=== PATIENT | male | born 1950 | race Caucasian/White ===

== ENCOUNTER → 2018-05-09 | Outpatient (CLI) | payer OTHER | LOC: FIMAGING 10:46 | PROVIDERS: ATTEND Orthopaedic Surgery | DX: Z01.818 Encounter for other preprocedural examination (principal); M17.12 Unilateral primary osteoarthritis, left knee ==

== ENCOUNTER 2018-06-04 09:15 | Observation (INO) | payer OTHER ==
--- NOTE | 2018-06-04 06:41 | PDHPUP ---
History & Physical Update H&P update statement: This history and physical update is based on an assessment of the patient which was completed after admission or registration (within 24 hours), but prior to the surgery/procedure. H&P update: H&P reviewed & patient examined, no change in patient's condition since H&P completed
[~2018-06-04 09:15] MED LIST: ROPIVACAINE 0.2% 80 MG, EPINEPHrine 0.2 MG, KETOROLAC TROMETHAMINE 30 MG in SYRINGE 0 ML IU ONE; TRANEXAMIC ACID 3,000 MG in NS (SYRINGE) 50 ML IRR ONE; TRANEXAMIC ACID 3,000 MG/50 ML BAG IRR ONE
[2018-06-04] MEDS ORDERED: FAMOTIDINE 20 MG TAB PO ONE (09:38)
[2018-06-04] MEDS ORDERED: ceFAZolin 2 GM/DEXTROSE 100 ML IV ONE (09:38)
[2018-06-04] MEDS ORDERED: ACETAMINOPHEN 325 MG TAB PO ONE (09:38)
[2018-06-04] MEDS ORDERED: DEXAMETHASONE 4 MG/ML VIAL IVP ONE (09:38)
[2018-06-04] MEDS ORDERED: LR 1,000 ML IV ONE (09:39)
[2018-06-04] MEDS ORDERED: MIDAZOLAM 2 MG/2 ML VIAL IVP ONE (10:59)
--- NOTE | 2018-06-04 10:59 | PDANEPAE ---
ANE Past Medical History - Cardiovascular History Hx Hypertension: Yes Hx Arrhythmias: No Hx Chest Pain: No Hx Coronary Artery / Peripheral Vascular Disease: No Hx CHF / Valvular Disease: No Hx Palpitations: No - Pulmonary History Hx COPD: No Hx Asthma/Reactive Airway Disease: No Hx Recent Upper Respiratory Infection: No Hx Oxygen in Use at Home: No Hx Sleep Apnea: No Sleep Apnea Screening Result - Last Documented: Negative - Neurologic History Hx Cerebrovascular Accident: No Hx Seizures: Yes Hx Dementia: No Neurologic History Comment: EPILEPSY - KEPPRA. LAST SEIZURE 4 YRS AGO - Endocrine History Hx Diabetes: No - Renal History Hx Renal Disorders: No - Liver History Hx Hepatic Disorders: No - Neurological & Psychiatric Hx Hx Neurological and Psychiatric Disorders: No Neurological / Psychiatric History Comment: L4/L5 DDD R FOOT - Cancer History Hx Cancer: No - Congenital Disorder History Hx Congenital Disorders: No - GI History Hx Gastrointestinal Disorders: Yes Gastrointestinal History Comment: ACID REFLUX - Other Health History Other Health History: NEG - Chronic Pain History Chronic Pain: Yes (L KNEE) - Surgical History Prior Surgeries: EAR TUBE PLACED 7 YRS AGO. ENDOSCPIES X2. COLONOSCOPIES ANE Review of Systems Review of Systems: - Exercise capacity METS (RN): 4 METS ANE Patient History - Allergies Allergies/Adverse Reactions: No Known Allergies Allergy (Verified 05/05/18 10:01) - Home Medications Home Medications: Hydrochlorothiazide [HCTZ (*)] 25 mg PO DAILY@11/14/13 [Last Taken 06/03/18] Lisinopril [Zestril 10 mg (*)] 10 mg PO DAILY@11/14/13 [Last Taken 06/03/18] Aspirin [Aspirin 81mg (*)] 81 mg PO DAILY@05/05/18 [Last Taken 05/27/18] Atorvastatin Calcium [Lipitor 10 mg (*)] 10 mg PO DAILY@05/05/18 [Last Taken 06/03/18] Multivitamins [Multivitamin (*)] 1 each PO DAILY@05/05/18 [Last Taken ] Pantoprazole Sodium [Protonix 40mg (*)] 40 mg PO DAILY 05/05/18 [Last Taken 02/12 08:00] - NPO status NPO Since - Liquids (Date): 06/04/18 NPO Since - Liquids (Time): 08:00 NPO Since - Solids (Date): 06/03/18 NPO Since - Solids (Time): 21:00 - Smoking Hx Smoking Status: Never smoked - Family Anes Hx Family Hx Anesthesia Complications: NEG ANE Labs/Vital Signs - Vital Signs Blood Pressure: 153/86 Heart Rate: 75 Respiratory Rate: 15 O2 Sat (%): 96 Height: 182.88 cm Weight: 86.183 kg ANE Physical Exam - Airway Neck exam: FROM Mallampati Score: Class 2 Mouth exam: normal dental/mouth exam - Pulmonary Pulmonary: no respiratory distress - Cardiovascular Cardiovascular: regular rate and rhythym - ASA Status ASA Status: II
[2018-06-04] MEDS ORDERED: MIDAZOLAM 2 MG/2 ML VIAL ONE (11:01)
[2018-06-04] MEDS ORDERED: PROPOFOL/EMULSION 500 MG/50 ML BOTTLE IV ONE (11:07)
[2018-06-04] MEDS ORDERED: ALBUTEROL 3 ML DEYVIAL IH PRN (11:26)
[2018-06-04] MEDS ORDERED: ONDANSETRON 4 MG/2 ML VIAL IVP PRN ×2 (11:26→12:38)
[2018-06-04] MEDS ORDERED: fentaNYL 100 MCG/2 ML INJ IVP PRN (11:26)
[2018-06-04] MEDS ORDERED: NALOXONE HCL 0.4 MG/ML INJ IVP PRN (11:26)
[2018-06-04] MEDS ORDERED: fentaNYL 100 MCG/2 ML INJ ONE (11:41)
[2018-06-04] MEDS ORDERED: diphenhydrAMINE 25 MG CAP PO PRN (12:38)
[2018-06-04] MEDS ORDERED: BISACODYL 10 MG SUPP PR PRN (12:38)
[2018-06-04] MEDS ORDERED: LACTULOSE 20 GM/30 ML UDCUP PO PRN (12:38)
[2018-06-04] MEDS ORDERED: MAGNESIUM HYDROXIDE 30 ML UDCUP PO PRN (12:38)
[2018-06-04] MEDS ORDERED: POLYETHYLENE GLYCOL 3350 17 GM PKT PO PRN (12:38)
[2018-06-04] MEDS ORDERED: PROMETHAZINE HCL 25 MG/ML INJ IVP PRN (12:38)
[2018-06-04] MEDS ORDERED: oxyCODONE IR 5 MG TAB PO PRN (12:38)
[2018-06-04] MEDS ORDERED: ONDANSETRON DISINTEGRATING 4 MG TAB PO PRN (12:38)
[2018-06-04] MEDS ORDERED: PROMETHAZINE HCL 25 MG SUPPR PR PRN (12:38)
[2018-06-04] MEDS ORDERED: METOCLOPRAMIDE 10 MG/2 ML VIAL IVP PRN (12:38)
[2018-06-04] MEDS ORDERED: CYCLOBENZAPRINE 10 MG TAB PO PRN (12:38)
[2018-06-04] MEDS ORDERED: DIPHENOXYLATE/ATROPINE LOMOTIL 1 TAB PO PRN (12:38)
[2018-06-04] MEDS ORDERED: TEMAZEPAM 15 MG CAP PO PRN (12:38)
--- NOTE | 2018-06-04 12:38 | POSTOPPROG ---
Post Op Note Date of Operation: 06/04/18 Surgeon: Shagufta Schuster Financial Sales Representative: criss schuster PA-C Anesthesiologist: dr. price Anesthesia: Spinal, Other (Specify) (adductor canal block) Pre-op Diagnosis: left knee OA Post-op Diagnosis: same Indication: left knee pain Procedure: L TKA robot assisted, sensor assisted Findings: severe knee OA Inf/Abcess present in the surg proc area at time of surgery?: No EBL: 50-100
[2018-06-04] MEDS ORDERED: LR 1,000 ML IV SCH (13:00)
[2018-06-04] MEDS: levETIRAcetam 500 MG TAB PO SCH (18:21)
[2018-06-04] MEDS: ACETAMINOPHEN 325 MG TAB PO SCH (18:21)
[2018-06-04] MEDS: ceFAZolin 2 GM/DEXTROSE 100 ML IV SCH (18:22)
[2018-06-04] MEDS: ASPIRIN 81 MG CHEWABLE TAB PO SCH (20:24)
[2018-06-04] MEDS: FAMOTIDINE 20 MG TAB PO SCH (20:24)
[2018-06-04] MEDS: SENNOSIDES/DOCUSATE SODIUM TAB PO SCH (20:25)
[2018-06-05] MEDS: ACETAMINOPHEN 325 MG TAB PO SCH ×2 (00:04→05:53)
[2018-06-05] MEDS: ceFAZolin 2 GM/DEXTROSE 100 ML IV SCH (03:28)
[2018-06-05] MEDS ORDERED: PANTOPRAZOLE SODIUM 40 MG TAB PO SCH (07:00)
[2018-06-05 07:27] VITALS: BP 103/62
[2018-06-05] MEDS: levETIRAcetam 500 MG TAB PO SCH (07:29)
--- NOTE | 2018-06-05 08:34 | SOAPPROG ---
SOAP Progress Note Assessment/Plan: Assessment: Patient is doing well POD 1 s/p L TKA Pain management: pain is well controlled on oral pain meds. VTE ppx: recommend aspirin 81 mg BID for 4 weeks, cont JOSE RAFAEL and SCDs Anemia: level is expected initially postop. Asymptomatic. Continue to monitor D/c planning: d/c to home today pending release from PT Plan: 06/05/18 08:33 Subjective: patient is doing well, denies SOB, chest pain and N/V Objective: Vital Signs Temp Pulse Resp BP Pulse Ox 36.6 C 58 L 17 103/62 99 06/05/18 07:26 06/05/18 07:26 06/05/18 07:26 06/05/18 07:26 06/05/18 07:26 Laboratory Results 06/05/18 04:37 06/04/18 06/05/18 06/06/18 05:59 05:59 05:59 Intake Total 1500 Output Total 480 Balance 1020 LLE incision dressing is clean and dry, NVI, +pf/df ICD10 Worksheet Patient Problems: Problems Problem Status Onset Primary localized osteoarthritis of left knee Acute Seizure disorder Acute
[2018-06-05] MEDS: ASPIRIN 81 MG CHEWABLE TAB PO SCH (08:59)
[2018-06-05] MEDS: FAMOTIDINE 20 MG TAB PO SCH (08:59)
[2018-06-05] MEDS: SENNOSIDES/DOCUSATE SODIUM TAB PO SCH (09:35)
--- NOTE | 2018-06-05 09:39 | ASMTLACE ---
LACE Length of stay for Answers: 2 days current admission Acuity / Level of Answers: No Care: Did the patient have an inpatient admission? Comorbidities - select Answers: Opioid dependence all that apply / Chronic pain Other Notes: HTN; Epilepsy # of Emergency department Answers: 0 visits in the last 6 months Score: 7 Date Signed: 06/05/2018 09:38 AM Electronically Signed By:SMITHA Her
--- NOTE | 2018-06-05 10:30 | GOP ---
DATE OF OPERATION: 06/04/2018 SURGEON: Matilda Dickerson MD PIT INSPECTOR: GARRET Donato. ANESTHESIA: Spinal. PREOPERATIVE DIAGNOSIS: Left knee osteoarthritis. POSTOPERATIVE DIAGNOSIS: Left knee osteoarthritis. PROCEDURE PERFORMED: Left total knee arthroplasty. FINDINGS: ESTIMATED BLOOD LOSS: 30 cc. INDICATIONS: The patient is a 67-year-old male with severe and progressive pain and deformity of the left knee unresponsive to conservative care. The risks and benefits of surgical intervention were e xplained in detail. DESCRIPTION OF PROCEDURE: The patient was brought to the operative room and placed on the table in t he supine position. Spinal anesthesia was induced without difficulty. A pneumatic tourniquet was appl ied about the left proximal thigh, and the leg was prepped and draped in a sterile fashion. The leg h older was applied. After exsanguination by elevation the tourniquet was inflated to 250 mmHg. Incision was made anterior medial from the tibial tuberosity to a point 2 cm proximal to the superior pole of the patella. Medial parapatellar arthrotomy was carried out from the superior pole of the pa tella and posteriorly in line with the fibers of the Type II VMO. The medial collateral ligament was elevated and the infrapatellar fat pad was resected. The patella was everted and the articular surface was excised. A 38 mm patellar button was placed. Attention was turned first to the distal aspect of the femur. After exposure of the femur, 2 half pi ns were placed for fixation of the femoral array. In a similar fashion, 2 pins were placed anteromed ial on the tibia for fixation of the tibial array. External land marking and registration of the hip center were performed without difficulty. Internal femoral and tibial registration were carried out without difficulty and the femoral and tibial checkpoints were placed and verified for accuracy. Attention was turned to the femur. The foot print for the size 6 femoral component was cut with the saw using the [employer] robotic system and verified for accuracy against the CT based plan. In a similar f ashion, the saw was used to cut the footprint for the size 6 tibial component using the [employer] system an d verified for accuracy against the CT based plan. The tibial articular surface was excised without d ifficulty, followed by the intercondylar box cut. The knee was extended and the remnants of the medial and lateral meniscus were excised. The posterior capsule was injected with ropivacaine, epinephrine and Toradol. A size 6 tibial tray was positioned . Trial reduction was then carried out. There was excellent range of motion, alignment, and stability using the 9 mm polyethylene. All trials were then removed. The joint was thoroughly irrigated and carefully dried. The press-fit c omponents were implanted. The permanent 9 mm polyethylene was placed without difficulty. The tourniquet was deflated and all bleeders were coagulated. The wound was thoroughly irrigated and closed using interrupted sutures of 2-0 Vicryl for the joint capsule. The subcu was closed with 3-0 V icryl and the skin with 4-0 Monocryl. Dermabond and Steri-Strips were applied followed by a compress darya dressing. The patient was then moved from the operating room to the recovery room in good conditi on, having tolerated the procedure well. PATHOLOGY: Severe medial patellofemoral osteoarthritis. /[id number]/MODL
[2018-06-05] MEDS ORDERED: HYDROCHLOROTHIAZIDE 25 MG TAB PO SCH (12:00)
[2018-06-05] MEDS ORDERED: ATORVASTATIN CALCIUM 10 MG TAB PO SCH (12:00)
[2018-06-05] MEDS ORDERED: LISINOPRIL 10 MG TAB PO SCH (12:00)
== END 2018-06-05 10:44 | disposition home or self-care (01) ==
LOC: F3N 09:15
PROVIDERS: ADMIT Orthopaedic Surgery; ATTEND Orthopaedic Surgery
PROC: 0SRD0JZ Replacement of Left Knee Joint with Synthetic Substitute, Open Approach (ICD-10-PCS; principal; 2018-06-04 11:00)
DX: M17.12 Unilateral primary osteoarthritis, left knee (principal)
CPT/HCPCS: 27447; 73560; 97110; 97116; 97161; G0378; J0171; J0690; J1100; J1885; J2250; J2704; J2795; J3010